=== PATIENT | male | born 1960 | race Caucasian/White ===

== ENCOUNTER → 2021-01-22 | Outpatient (CLI) | payer BC ==
[2021-01-22 10:26] LABS: ALBUMIN 4.2 g/dL (3.5-5.0); POTASSIUM 4.9 mmol/L (3.5-5.1)
[2021-01-22 10:27] LABS: CALCIUM 9.7 mg/dL (8.3-10.5)
[2021-01-22 10:28] LABS: BASO # 0.07 (0.02-0.10); EOS # 0.14 (0.04-0.40); EOS % 1.6 % (0.0-4.0); HEMATOCRIT 51.1 % (42.0-52.0); HEMOGLOBIN 17.2 g/dL (13.5-18.0); MEAN CELL VOLUME 89 fl (78-100); MEAN CORPUSCULAR HEMOGLOBIN 30 pg (27-31); MEAN CORPUSCULAR HGB CONC 34 g/dL (33-37); MEAN PLATELET VOLUME 9.2 fl (7.4-10.4); MONO # 0.61 (0.20-0.80); NEU # 4.49 (1.40-6.50); PLATELET COUNT 449 K/mm3 (130-400); RED BLOOD COUNT 5.74 M/mm3 (4.20-5.60); RED CELL DISTRIBUTION WIDTH 12.4 % (11.5-14.5); WHITE BLOOD COUNT 8.7 K/mm3 (4.8-10.8)
[2021-01-22 10:29] LABS: TOTAL PROTEIN 7.6 g/dL (6.4-8.3)
[2021-01-22 10:30] LABS: TOTAL BILIRUBIN 0.6 mg/dL (0.2-1.2)
== END ==
LOC: LAB 08:57
PROVIDERS: Nurse Practitioner Primary Care
DX: Z00.00 Encounter for general adult medical examination without abnormal findings (principal)

== ENCOUNTER → 2023-07-26 | Outpatient (CLI) | payer BC ==
[2023-07-26 08:38] LABS: BASO # 0.06 K/mm3 (0.02-0.10); EOS # 0.08 K/mm3 (0.04-0.40); EOS % 1.1 % (0.0-4.0); HEMATOCRIT 48.5 % (42.0-52.0); HEMOGLOBIN 16.1 g/dL (13.5-18.0); LYMPH# 3.18 K/mm3 (1.50-4.00); MEAN CELL VOLUME 89 fl (78-100); MEAN CORPUSCULAR HEMOGLOBIN 30 pg (27-31); MEAN CORPUSCULAR HGB CONC 33 g/dL (33-37); MEAN PLATELET VOLUME 8.9 fl (7.4-10.4); MONO # 0.55 K/mm3 (0.20-0.80); NEU # 3.68 K/mm3 (1.40-6.50); PLATELET COUNT 358 K/mm3 (130-400); RED BLOOD COUNT 5.45 M/mm3 (4.20-5.60); WHITE BLOOD COUNT 7.6 K/mm3 (4.8-10.8)
[2023-07-26 08:45] LABS: ALBUMIN 4.7 g/dL (3.4-4.8)
[2023-07-26 08:46] LABS: CALCIUM 9.7 mg/dL (8.3-10.5)
[2023-07-26 08:47] LABS: TOTAL PROTEIN 7.9 g/dL (6.2-8.1)
[2023-07-26 08:49] LABS: TOTAL BILIRUBIN 0.6 mg/dL (0.2-1.2)
== END ==
LOC: RAD 08:16
PROVIDERS: Nurse Practitioner Primary Care
DX: N44.2 Benign cyst of testis (principal)

== ENCOUNTER → 2023-08-07 | Outpatient (CLI) | payer BC | LOC: RAD 09:18 | DX: N32.3 Diverticulum of bladder (principal); K40.20 Bilateral inguinal hernia, without obstruction or gangrene, not specified as recurrent | CPT/HCPCS: Q9967 ==